=== PATIENT | female | born 1970 | race Caucasian/White ===

== ENCOUNTER 2022-06-09 17:00 | Inpatient (IN) | payer OTHER ==
[~2022-06-09] VITALS: Ht 167.6 cm; Wt 130.2 kg
[2022-06-09] MEDS ORDERED: ALBUTEROL SULFATE/IPRATROPIU 3 ML SOL IH ONE (17:15)
[2022-06-09 17:19] VITALS: BP 127/108
--- NOTE | 2022-06-09 17:49 | NUR ---
52 y/o female biba from home, c/o chills, subjective fever, cough, sob and increased respiratory effort for 4 days. at home health nurse came and found patient was 78% ra at home. amr arrived and placed pt on non rebreather 15L on 100% spo2. a&ox4, korean speaking, does not ambulate at this time due to weakness. pt has bl lower leg cellulitis and currently has home health. lung sounds wheezing bl, heart sounds regular and tachy at 106. ermd made aware. pmh: dm2, thyroid, htn, cellulitis, hld nka med: denies
[2022-06-09 18:26] LABS: BASOPHILS % (AUTO) 0.4 % (0.0-2.0); EOSINOPHILS # (AUTO) 0.2 K/uL (0-0.4); EOSINOPHILS % (AUTO) 1.4 % (0.0-4.0); HEMATOCRIT 29.3 % (36-48); HEMOGLOBIN 9.1 g/dL (12.0-16.0); LYMPHOCYTES # (AUTO) 1.5 K/uL (2.5-16.5); LYMPHOCYTES % (AUTO) 14.4 % (20.5-51.1); MEAN CORPUSCULAR HEMOGLOBIN 24 pg (27-31); MEAN CORPUSCULAR HGB CONC 31 g/dL (33-37); MEAN CORPUSCULAR VOLUME 77.2 fL (80-94); MONOCYTES # (AUTO) 1.4 K/uL (0.8-1.0); MONOCYTES % (AUTO) 13.2 % (1.7-9.3); NEUTROPHILS # (AUTO) 7.4 K/uL (1.8-7.7); NEUTROPHILS % (AUTO) 70.6 % (42.2-75.2); PLATELET COUNT (AUTO) 473 K/uL (140-450); RED CELL DISTRIBUTION WIDTH 21.3 % (11.6-13.7); WHITE BLOOD COUNT (AUTO) 10.6 K/uL (4.8-10.8)
[2022-06-09 18:53] LABS: ALBUMIN 2.3 g/dL (3.4-5.0); ANION GAP 11.4 (8-16); CARBON DIOXIDE 31.7 mmol/L (21-32); CREATININE 1.2 mg/dL (0.6-1.3); POTASSIUM 4.1 mmol/L (3.5-5.1); TOTAL BILIRUBIN 0.8 mg/dL (0.0-1.0)
[2022-06-09] MEDS ORDERED: OSELTAMIVIR PHOSPHATE 75 MG CAP PO ONE (19:40)
[2022-06-09] MEDS ORDERED: AZITHROMYCIN 500 MG in DEXTROSE 5% 250 ML IV ONE (19:45)
--- NOTE | 2022-06-09 20:00 | NUR ---
ASSUMED CARE OF PT AT THIS TIME. UPDATED PT ON POC WITH FULL RETURNED VERBAL UNDERSTANDING. AWAITING ADMISSION. WILL FOLLOW THROUGH WITH ALL ORDERS AT THIS TIME. PT IN POSITION OF COMFORT. VSS. WILL CONTINUE TO MONITOR.
--- NOTE | 2022-06-09 20:09 | NUR ---
PT REMOVED FROM 15LNRB AND PLACED ON 6L OXY PT TOLERATING WELL AT THIS TIME PT TENDS TO DESAT SLIGHTLY WHEN SHE SPEAKS AND UPON EXERTION WILL CONTINUE TO MONITOR
[2022-06-09] MEDS ORDERED: FUROSEMIDE 40 MG/4 ML VIAL IVP SCH (20:15)
[2022-06-09] MEDS ORDERED: METOCLOPRAMIDE 10 MG/2 ML INJ VIAL IVP PRN (20:25)
[2022-06-09] MEDS ORDERED: POTASSIUM CHLORIDE 10 MEQ TABER PO PRN (20:25)
[2022-06-09] MEDS ORDERED: HYDROcodone/APAP 5/325 MG 1 TAB TAB PO PRN (20:25)
[2022-06-09] MEDS ORDERED: KCL 20 MEQ/WATER INJ PREMIX 200 ML IV PRN (20:25)
[2022-06-09] MEDS ORDERED: ONDANSETRON 4 MG/2 ML VIAL IVP PRN (20:25)
[2022-06-09] MEDS ORDERED: ACETAMINOPHEN 325 MG TAB PO PRN (20:25)
[2022-06-09] MEDS ORDERED: OSELTAMIVIR PHOSPHATE 75 MG CAP ONE (20:43)
[2022-06-09] MEDS ORDERED: cefTRIAXone 1,000 MG VIAL ONE (20:43)
[2022-06-09] MEDS ORDERED: methylPREDNISolone SS 40 MG/ML VIAL IVP SCH (21:00)
[2022-06-09] MEDS ORDERED: SYN.075 PO (21:06)
[2022-06-09] MEDS ORDERED: METF-350 PO (21:06)
[2022-06-09] MEDS ORDERED: MEX2.5 PO (21:06)
[2022-06-09] MEDS ORDERED: ATOR10TA PO (21:06)
[2022-06-09] MEDS ORDERED: VITA1TAB44 PO (21:06)
[2022-06-09] MEDS ORDERED: LISI-487 PO (21:06)
[2022-06-09] MEDS ORDERED: AZITHROMYCIN 500 MG INJ VIAL IV ONE (21:13)
--- NOTE | 2022-06-09 21:25 | NUR ---
NAMITA BANEGAS AT BEDSIDE TO TAKE PICTURES OF WOUNDS TO BILATERAL LEGS. PT TOLERATING WELL
[2022-06-09] MEDS ORDERED: ASPIRIN 325 MG TAB PO SCH (21:35)
[2022-06-09] MEDS: ATORVASTATIN 20 MG TAB PO SCH (21:35)
[2022-06-09] MEDS: ZOLPIDEM 5 MG TAB PO PRN (21:46)
--- NOTE | 2022-06-09 22:25 | NUR ---
Patient will be admitted to care of DR. JULIEN. Admited to TELEMETRY. Will go to room 120B. Belongings list completed. Report to BART AGUERO.
[2022-06-10] VITALS: BP 138/76
--- NOTE | 2022-06-10 03:24 | NUR ---
arrived at bedside and found pt w/ retractions along with periods of pause in breaths pt w/ occasional gasps placed pt on niv 22/12 f16 55% retractions appear to be resolved w/ no pauses in breaths post niv initiation pt receiving approx [id number] w/ spo2 97% 15 min post initiation bipap plugged into red outlet w/ alarms on and audible will continue to monitor
[2022-06-10 04:00] VITALS: BP 129/70
--- NOTE | 2022-06-10 07:30 | NUR ---
ENDORSED PT TO AM NURSE.PT IS STABLE
[2022-06-10 07:42] LABS: HEMOGLOBIN 8.9 g/dL (12.0-16.0); MEAN CORPUSCULAR HEMOGLOBIN 24 pg (27-31); MEAN CORPUSCULAR HGB CONC 31 g/dL (33-37); MEAN CORPUSCULAR VOLUME 78.2 fL (80-94); PLATELET COUNT (AUTO) 474 K/uL (140-450); RED BLOOD CELL COUNT(AUTO) 3.71 MIL/uL (4.20-5.40); RED CELL DISTRIBUTION WIDTH 21.5 % (11.6-13.7)
[2022-06-10 08:12] LABS: ANION GAP 13.7 (8-16); CARBON DIOXIDE 29.2 mmol/L (21-32); CREATININE 0.9 mg/dL (0.6-1.3); POTASSIUM 4.9 mmol/L (3.5-5.1)
[2022-06-10 09:02] LABS: BASOPHILS % (MANUAL) 0 % (0-2); BLASTS, MANUAL % 0 % (0-0); EOSINOPHILS % (MANUAL) 0 % (0-4); LYMPHOCYTES % (MANUAL) 5 % (20-46); METAMYELOCYTES % 0 % (0-0); MONOCYTES % (MANUAL) 4 % (5-12); MYELOCYTES % 0 % (0-0); OTHER CELLS,MANUAL % 0 (0-0); PROMYELOCYTES % 0 % (0-0)
[2022-06-10 09:05] LABS: BUFFY COAT SMEAR PREP N
[2022-06-10] MEDS: ASPIRIN 81 MG TAB.CHEW PO SCH (10:21)
[2022-06-10] MEDS: ATORVASTATIN 20 MG TAB PO SCH (10:21)
[2022-06-10] MEDS: OSELTAMIVIR PHOSPHATE 75 MG CAP PO SCH ×2 (10:21→21:31)
[2022-06-10] MEDS: FUROSEMIDE 40 MG/4 ML VIAL IVP SCH ×2 (10:22→16:41)
[2022-06-10] MEDS: ENOXAPARIN 40 MG/0.4 ML SYR SUBQ SCH (10:25)
--- NOTE | 2022-06-10 10:53 | NUR ---
PATIENT HAS BEEN SCREENED AND CATEGORIZED MODERATE NUTRITION RISK. PATIENT WILL BE SEEN WITHIN 3-5 DAYS OF ADMISSION. 06/12/[address]
--- NOTE | 2022-06-10 15:04 | NUR ---
DC PLANNING SW MET WITH PT AT BEDSIDE TO COMPLETE ASSESSMENT. PT REPORTS RESIDING IN A MOBILE HOME WITH HER SON, AT THE ADDRESS LISTED ON FILE. PT IDENTIFIED CASANDRA HUSSEIN, DAUGHTER, AND JAMES HUSSEIN, SON, EMERGENCY CONTACTS. PT DENIED HAVING AD IN PLACE AND ACCEPTED AD OFFERED BY SW. PT REPORTS LAST VISIT WITH PCP, LAST MONTH. SW SPOKE TO PT ABOUT THE IMPORTANCE OF F/UP CARE, PT RECEPTIVE AND PROVIDED SW WITH PERMISSION TO SCHEDULE PCP FOLLOW UP.PT REPORTS MEDICATION COMPLIANCE AND DENIES BARRIERS IN ACCESSING TO NEEDED MEDICATIONS. PT REPORTS RECEIVING MEDICATION FROM [facility] IN [place], WHEN NEEDED. PT REPORTS BEING AMBULATORY WITH DME ASSISTANCE; SEAN, CONSUELO, BC, FWW. PT IS ABLE TO COMPLETE ALL ADL'S INDEPENDENTLY. PT HAS HX OF DIABETES THAT IS REPORTED TO BE WELL MANAGED. PT REPORTS RECEIVING HH WITH [facility] FOR WOUND CARE. PT ALSO REPORTS RECEIVING OUTPT EVERY THREE WEEKS WITH [facility]. PT DENIES HX OF SNF PLACEMENT AND DIALYSIS TX. PT REPORTS DC PLAN IS TO RETURN HOME WITH FAMILY PROVIDING TRANSPORTATION WHEN MEDICALLY STABLE. SW INQUIRED ON ADDITIONAL RESOURCES NEEDED, PT DECLINED. Addendum: 06/10/22 at 1505 by Briana PARADA Amended: Links added. Addendum: 06/12/22 at 1653 by Briana PARADA EDGAR OUTREACHED TO PATIENTS PCP OFFICE AT [phone]. EDGAR SPOKE WITH KENNETH AT DR OFFICE, APPT SCHEDULED FOR 06/22/22 AT 9:00 AM [facility] [address] [facility] [address] . PATIENT WAS PROVIDED WITH APPT DETAILS THAT INCLUDED; DATE, TIME, ADDRESS, PHONE NUMBER AND DR. PT ACCEPTED
--- NOTE | 2022-06-10 19:55 | NUR ---
FOUND PATIENT ON 6L OXYMIZER SATING 99%. NO RESPIRATORY DISTRESS NOTED. WILL CONTINUE TO MONITOR.
[2022-06-10 20:00] VITALS: BP 120/74
--- NOTE | 2022-06-10 20:00 | NUR ---
RECEIVED PT FROM DAY RN FOR CONTINUITY OF CARE. PT ALERT AND ORIENTED X 4, ON 6L OXIMIZER. O2 SAT AT 100%.FAMILY AT BEDSIDE. NO S/SX OF DISTRESS. BREATHING EVEN AND UNLABORED. IV ON R AC, G 20, FLUSHING WELL. WOUNDS ON BILATERAL SHINS. DRESSING DRY AND INTACT. ALL PRECAUTIONS IN PLACE. CALL LIGHT WITHIN REACH. WILL CONTINUE TO MONITOR.
[2022-06-10] MEDS: FAMOTIDINE 20 MG/2 ML VIAL IV SCH (21:30)
[2022-06-10] MEDS: AZITHROMYCIN 500 MG in DEXTROSE 5% 250 ML IV SCH (22:00)
--- NOTE | 2022-06-10 22:00 | NUR ---
SCHEDULED MEDICATIONS GIVEN. PT TOLERATED WELL. WILL CONTINUE TO MONITOR.
[2022-06-11] VITALS: BP 120/72
--- NOTE | 2022-06-11 | NUR ---
VITAL SIGNS STABLE. NO S/SX OF DISTRESS NOTED. BREATHING EVEN AND UNLABORED.ALL PRECAUTIONS IN PLACE. CALL LIGHT WITHIN REACH. WILL CONTINUE TO MONITOR.
--- NOTE | 2022-06-11 03:29 | NUR ---
PT IS ASLEEP.NO S/SX OF DISTRESS NOTED. O2 SAT AT 97%.ALL PRECAUTIONS IN PLACE. WILL CONTINUE TO MONITOR.
[2022-06-11 04:00] VITALS: BP 125/73
--- NOTE | 2022-06-11 06:58 | NUR ---
PT IS STABLE. NO ACUTE EVENTS THROUGHOUT THE NIGHT. NO S/SX OF DISTRESS AT THIS TIME. NO COMPLAINS OF PAIN. ALL PRECAUTIONS IN PLACE. CALL LIGHT WITHIN REACH. WILL ENDORSE TO AM SHIFT NURSE.
[2022-06-11 07:24] LABS: BASOPHILS # (AUTO) 0.1 K/uL (0.00-0.22); BASOPHILS % (AUTO) 0.6 % (0.0-2.0); EOSINOPHILS # (AUTO) 0.2 K/uL (0-0.4); EOSINOPHILS % (AUTO) 2.1 % (0.0-4.0); HEMATOCRIT 28.7 % (36-48); HEMOGLOBIN 8.9 g/dL (12.0-16.0); LYMPHOCYTES # (AUTO) 1.9 K/uL (2.5-16.5); LYMPHOCYTES % (AUTO) 20.3 % (20.5-51.1); MEAN CORPUSCULAR HEMOGLOBIN 24 pg (27-31); MEAN CORPUSCULAR HGB CONC 31 g/dL (33-37); MEAN CORPUSCULAR VOLUME 77.5 fL (80-94); MONOCYTES # (AUTO) 0.4 K/uL (0.8-1.0); MONOCYTES % (AUTO) 4.5 % (1.7-9.3); NEUTROPHILS # (AUTO) 6.6 K/uL (1.8-7.7); NEUTROPHILS % (AUTO) 72.5 % (42.2-75.2); PLATELET COUNT (AUTO) 501 K/uL (140-450); RED BLOOD CELL COUNT(AUTO) 3.71 MIL/uL (4.20-5.40); RED CELL DISTRIBUTION WIDTH 20.9 % (11.6-13.7); WHITE BLOOD COUNT (AUTO) 9.1 K/uL (4.8-10.8)
--- NOTE | 2022-06-11 07:30 | NUR ---
RECEIVED REPORT FROM NIGHTSHIFT NURSE MEGAN FOR CONTINUITY OF CARE. PT IS IN STABLE CONDITION, A/OX4 AND IS CURRENTLY SLEEPING. PT IS BREATHING EVEN, REGULAR AND UNLABORED ON 6L VIA OXYMIZER. PT IS CONTINENT OF THE BOWEL AND BLADDER, AND IS AMBULATORY. PT SKIN IS INTACT. DROPLET PRECAUTION IN EFFECT FOR INFLUENZA B. NO SIGNS OF PAIN OR DISTRESS NOTED AT THIS TIME.
[2022-06-11 08:00] VITALS: BP 134/75
[2022-06-11 08:45] LABS: ANION GAP 12.8 (8-16); CARBON DIOXIDE 33.7 mmol/L (21-32); CREATININE 0.9 mg/dL (0.6-1.3); POTASSIUM 3.5 mmol/L (3.5-5.1)
[2022-06-11] MEDS: ATORVASTATIN 20 MG TAB PO SCH (08:49)
[2022-06-11] MEDS: FUROSEMIDE 40 MG/4 ML VIAL IVP SCH ×2 (08:49→17:09)
[2022-06-11] MEDS: ASPIRIN 81 MG TAB.CHEW PO SCH (08:49)
[2022-06-11] MEDS: FAMOTIDINE 20 MG/2 ML VIAL IV SCH ×2 (08:49→20:55)
[2022-06-11] MEDS: ENOXAPARIN 40 MG/0.4 ML SYR SUBQ SCH (08:50)
[2022-06-11] MEDS: OSELTAMIVIR PHOSPHATE 75 MG CAP PO SCH ×2 (08:50→20:55)
--- NOTE | 2022-06-11 10:20 | NUR ---
PT COMPLAINED OF HEADACHE 6/10 PAIN LEVEL. MEDICATED PRN TYLENOL.
[2022-06-11] MEDS: LEVOTHYROXINE 0.075 MG TAB PO SCH (11:11)
[2022-06-11] MEDS: MAG SULF 2000 MG/WATER PREMIX 50 ML IV PRN (11:28)
--- NOTE | 2022-06-11 11:28 | NUR ---
ADMINISTERED MAG RIDER FOR MAG LEVEL OF 1.5.
--- NOTE | 2022-06-11 11:43 | NUR ---
CHECKED ON PT TO SEE IF SHE CAN BE WEANED DOWN ON O2. PT WAS WITH AUTO BODY SERVICE MECHANIC USING RESTROOM AUTO BODY SERVICE MECHANIC STATED PT VITALS BEFORE GOING TO THE RESTROOM WERE 96% ON 6L OXYMIZER. WILL COME BACK TO CHECK ON PT TO TRY AND TITRATE O2.
[2022-06-11 12:00] VITALS: BP 141/96
[2022-06-11] MEDS ORDERED: DEXTROSE 50% 50 ML SYR IVP PRN (12:50)
--- NOTE | 2022-06-11 13:00 | NUR ---
VISUALLY ASSESSED PT, NO SIGNS OF PAIN OR DISTRESS NOTED AT THIS TIME.
--- NOTE | 2022-06-11 13:20 | NUR ---
TITRATED PT FROM 6L OXY TO 3L OXY PT IS SATING 93% AND IS STABLE WITHOUT RESP DISTRESS. PT IS AWARE IF SOB HAPPENS TO CALL RT.WILL CONTINUE TO MONITOR.
[2022-06-11 16:00] VITALS: BP 131/71
[2022-06-11] MEDS ORDERED: POTASSIUM CHLORIDE 10 MEQ TABER PO SCH (16:00)
[2022-06-11] MEDS ORDERED: MAG SULF 2000 MG/WATER PREMIX 50 ML IV ONE (16:00)
--- NOTE | 2022-06-11 16:00 | NUR ---
VISUALLY ASSESSED PT, NO SIGNS OF PAIN OR DISTRESS NOTED AT THIS TIME.
[2022-06-11] MEDS: BLOOD GLUCOSE MONITORING 1 DEV DEV FS SCH ×2 (17:08→20:55)
[2022-06-11] MEDS: INSULIN LISPRO SLIDING SCALE 100 UNITS/ML VIAL SUBQ PRN ×2 (17:10→21:46)
--- NOTE | 2022-06-11 18:00 | NUR ---
VISUALLY ASSESSED PT, NO SIGNS OF PAIN OR DISTRESS NOTED AT THIS TIME.
--- NOTE | 2022-06-11 19:05 | NUR ---
ENDORSED PT TO NIGHTSPRFT NURSE GUZMAN FOR CONTINUITY OF CARE. PT IS IN STABLE CONDITION.
--- NOTE | 2022-06-11 19:19 | NUR ---
RECEIVED PT FROM DAY RN FOR CONTINUITY OF CARE. PT ALERT AND ORIENTED X 4, ON 6L OXIMIZER. O2 SAT AT 100%.ON DROPLET PRECAUTION FOR INFLUENZA B. NO S/SX OF DISTRESS. BREATHING EVEN AND UNLABORED. IV ON R AC, G 20, FLUSHING WELL. WOUNDS ON BILATERAL SHINS. DRESSING DRY AND INTACT. ALL PRECAUTIONS IN PLACE. CALL LIGHT WITHIN REACH. WILL CONTINUE TO MONITOR.
[2022-06-11 20:00] VITALS: BP 142/91
[2022-06-11] MEDS: AZITHROMYCIN 500 MG in DEXTROSE 5% 250 ML IV SCH (20:55)
--- NOTE | 2022-06-11 21:00 | NUR ---
SCHEDULED MEDICATIONS GIVEN. PT TOLERATED WELL. WILL CONTINUE TO MONITOR.
[2022-06-12] VITALS: BP_SYST 111; BP_SYST 137; BP_DIAS 51; BP_DIAS 81
--- NOTE | 2022-06-12 02:24 | NUR ---
PT IS ASLEEP.NO S/SX OF DISTRESS NOTED. O2 SAT AT 95%.ALL PRECAUTIONS IN PLACE. WILL CONTINUE TO MONITOR.
[2022-06-12 04:00] VITALS: BP 116/69
--- NOTE | 2022-06-12 05:30 | NUR ---
PT O2 SAT AT 88% SLEEPING. INCREASED OXIMIZER FROM 3L TO 6L. O2 SAT BACK TO 94%. INFORMED RT MANDAEISM WITH O2 CHANGE.
--- NOTE | 2022-06-12 06:11 | NUR ---
SCHEDULED MEDICATIONS GIVEN. PT TOLERATED WELL. WILL CONTINUE TO MONITOR.
[2022-06-12] MEDS: LEVOTHYROXINE 0.075 MG TAB PO SCH (06:22)
[2022-06-12] MEDS: BLOOD GLUCOSE MONITORING 1 DEV DEV FS SCH ×4 (06:22→20:57)
[2022-06-12 06:32] LABS: BASOPHILS % (AUTO) 0.5 % (0.0-2.0); EOSINOPHILS # (AUTO) 0.5 K/uL (0-0.4); EOSINOPHILS % (AUTO) 5.7 % (0.0-4.0); HEMATOCRIT 30.3 % (36-48); HEMOGLOBIN 9.6 g/dL (12.0-16.0); LYMPHOCYTES # (AUTO) 1.3 K/uL (2.5-16.5); LYMPHOCYTES % (AUTO) 14.4 % (20.5-51.1); MEAN CORPUSCULAR HEMOGLOBIN 24 pg (27-31); MEAN CORPUSCULAR HGB CONC 32 g/dL (33-37); MONOCYTES # (AUTO) 0.5 K/uL (0.8-1.0); MONOCYTES % (AUTO) 5.3 % (1.7-9.3); NEUTROPHILS # (AUTO) 6.7 K/uL (1.8-7.7); NEUTROPHILS % (AUTO) 74.1 % (42.2-75.2); PLATELET COUNT (AUTO) 497 K/uL (140-450); RED BLOOD CELL COUNT(AUTO) 3.94 MIL/uL (4.20-5.40); RED CELL DISTRIBUTION WIDTH 21.2 % (11.6-13.7); WHITE BLOOD COUNT (AUTO) 9.1 K/uL (4.8-10.8)
[2022-06-12] MEDS: INSULIN LISPRO SLIDING SCALE 100 UNITS/ML VIAL SUBQ PRN ×4 (06:33→21:38)
--- NOTE | 2022-06-12 06:39 | NUR ---
PT IS STABLE. NO ACUTE EVENTS THROUGHOUT THE NIGHT. BREATHING EVEN AND UNLABORED.O2 SAT AT 96%. S/SX OF DISTRESS AT THIS TIME. NO COMPLAINS OF PAIN. ALL PRECAUTIONS IN PLACE. CALL LIGHT WITHIN REACH. WILL ENDORSE TO AM SHIFT NURSE.
[2022-06-12 06:48] LABS: ANION GAP 12.4 (8-16); CARBON DIOXIDE 36.2 mmol/L (21-32); CREATININE 0.9 mg/dL (0.6-1.3); POTASSIUM 3.6 mmol/L (3.5-5.1)
[2022-06-12] MEDS: ALBUTEROL SULFATE/IPRATROPIU 3 ML SOL IH SCH ×3 (07:00→21:38)
--- NOTE | 2022-06-12 07:09 | NUR ---
RECEIVED PT FROM CLOTHING PATTERN PREPARER NURSE MEGAN FOR CONTINUITY OF CARE. PT AWAKE IN BED. NO DISTRESS NOTED. RESPIRATIONS EVEN AND UNLABORED ON 6L OXYMIZER. A&O4 ABLE TO COMMUNICATE NEEDS. NOTED BILATERAL LEGS COVERED WITH BANDAGE. CALL LIGHT WITHIN REACH. SAFETY PRECAUTIONS IN PLACE.
[2022-06-12 08:00] VITALS: BP 137/87
[2022-06-12] MEDS: FUROSEMIDE 40 MG/4 ML VIAL IVP SCH ×2 (09:00→17:00)
[2022-06-12] MEDS: OSELTAMIVIR PHOSPHATE 75 MG CAP PO SCH ×2 (09:03→21:28)
[2022-06-12] MEDS: ASPIRIN 81 MG TAB.CHEW PO SCH (09:04)
[2022-06-12] MEDS: ATORVASTATIN 20 MG TAB PO SCH (09:04)
[2022-06-12] MEDS: ENOXAPARIN 40 MG/0.4 ML SYR SUBQ SCH (09:05)
--- NOTE | 2022-06-12 09:14 | NUR ---
ADMINISTERED SCHEDULED MORNING MEDS. PT TOLERATED WELL. PT COMPLAINING OF LEG AND ARM PAIN 12/19. PT REQUESTING FOR NAPROXEN. PT SAID IT WORKS WELL FOR HER. MADE AWARE. AWAITING FOR RESPONSE.
--- NOTE | 2022-06-12 09:24 | NUR ---
PT WAS ASLEEP AND RESTING COMFORTABLE. DUONEB WAS NOT ADMINISTERED. HR75, RR20, O2 SAT 96. SLIGHT EXPITRATORY WHEEZE PRESENT. PT SHOWED NO SIGN OF DISTRESS
[2022-06-12] MEDS: FAMOTIDINE 20 MG/2 ML VIAL IV SCH ×2 (09:56→21:27)
[2022-06-12] MEDS: MAG SULF 2000 MG/WATER PREMIX 50 ML IV PRN (09:56)
--- NOTE | 2022-06-12 10:12 | NUR ---
IV MEDS ADMINISTERED BY LACI HURST. MG SULF ADMINISTERED BY RN FOR MG 1.7. NO ADVERSE REACTION NOTED.
--- NOTE | 2022-06-12 10:18 | NUR ---
WOUND CARE NOTE: WOUND ASSESSMENT DONE ON THIS 52 Y/0 PT. AAX4 PT. ADMITTED WITH BLE CHRONIC STASIS ULCERS, PER PT. SHE GOES TO [facility] AND HOME HEALTH CARE NURSE FOLLOW UP TWICE A WEEK, DAUGHTER USUALLY DOES WOUND CARE AT HOME DAILY. PER PT. SHE LIKES TO CONTINUE SANTYL OINTMENT AND SHE WILL PROVIDE UN-OPEN NEW TUBE. POC DISCUSSED WITH PRIMARY NURSE ISAURA AND PT. PT. VERBALIZES UNDERSTANDING. -RLE STASIS ULCER 1X1X0.5CM WOUND BED PINK, MOIST, NO ODOR, VI-WOUND SKIN DRY AND INTACT, PAIN 0/10 -LLE STASIS ULCER 92B08H1.8CM CIRCUMFERENCES IRREGULAR WOUND SHAPE ANTERIOR TO MEDIAL AND POSTERIOR, WOUND BED PINK AND MODERATE AMOUNT SEROUS DRAINAGE, NO ODOR, VI-WOUND SKIN DRY INTACT, PAIN 0/10 RECOMMENDATIONS: -CLEANSE BLE WOUNDS WITH WOUND CARE SOLUTION, PAT DRY, APPLY SANTYL OINTMENT WITH ADAPTIC/OIL EMULSION DRESSING, COVER WITH ABD PAD, WRAP WITH KERLIX ROLLS AND SECURED WITH TAPE DAILY AND PRN IF SOILING. FAMILY TO PROVIDE SANTYL OINTMENT. -ELEVATED BLE WITH 2 PILLOWS
[2022-06-12] MEDS ORDERED: POTASSIUM CHLORIDE 10 MEQ TABER PO SCH (10:23)
[2022-06-12] MEDS ORDERED: MAG SULF 2000 MG/WATER PREMIX 50 ML IV SCH (10:23)
[2022-06-12] MEDS: NAPROXEN 500 MG TAB PO SCH ×2 (10:36→21:28)
--- NOTE | 2022-06-12 11:31 | NUR ---
BLOOD SUGAR CHECK DONE. SLIDING SCALE INSULIN ADMINISTERED FOR BS 199. PT NOW ON 3L NC, SATTING AT 94%, ADJUSTED BY RT.
[2022-06-12 12:00] VITALS: BP 116/74
[2022-06-12] MEDS: NON ADHERENT DRESSING TP SCH (13:41)
--- NOTE | 2022-06-12 15:02 | NUR ---
PT SLEEPING. BREATHING EVEN AND UNLABORED. NO DISTRESS NOTED. SON AT BEDSIDE.
[2022-06-12 16:00] VITALS: BP 121/70
--- NOTE | 2022-06-12 17:49 | NUR ---
SLIDING SCALE INSULIN ADMINISTERED FOR BS 155. PT TOLERATED WELL. PT NO COMPLAINT OF SOB OR DIFFICULTY BREATHING. NO C/O OF PAIN. NO DISTRESS NOTED. SAFETY PRECAUTIONS IN PLACE.
--- NOTE | 2022-06-12 18:57 | NUR ---
PT SITTING AT BEDSIDE. ON 5L, NC SATTING AT 95-96%. NO SOB, NO C/O OF PAIN. SAFETY PRECAUTIONS IN PLACE.
--- NOTE | 2022-06-12 19:14 | NUR ---
ENDORSED PT TO SODIUM CHLORITE OPERATOR NURSE KAYDEN FOR CONTINUITY OF CARE. ALL NEEDS MET THROUGHOUT SHIFT. PT IS STABLE.
--- NOTE | 2022-06-12 19:30 | NUR ---
RECEIVED REPORT FROM DAY SHIFT NURSE. NO S/S OF DISTRESS. CALL LIGHT IN REACH . ALL SAFETY MEASURES IN PLACE. IV SL. 5L NC.
[2022-06-12 20:00] VITALS: BP 125/75
[2022-06-12] MEDS: AZITHROMYCIN 500 MG in DEXTROSE 5% 250 ML IV SCH (21:27)
[2022-06-12] MEDS: ZOLPIDEM 5 MG TAB PO PRN (21:28)
--- NOTE | 2022-06-12 22:26 | NUR ---
ASSISTED PT WITH REPOSITIONING AND ADJUSTED PILLOWS FOR COMFORT. NO S/S OF DISTRESS. CALL LIGHT IN REACH. ALL SAFETY MEASURES IN PLACE. IV RUNNING PER MD ORDER
--- NOTE | 2022-06-12 22:32 | NUR ---
RECEIVED REPORT TO CONTINUE CARE TO PATIENT FROM KAYDEN RN, PATIENT WAS STABLE DURING THE TRANSFER OF CARE. PATIENT WAS NOTED SLEEPING AT THIS TIME. NURSING NOTED PATIENT CHEST RISING AND FALLING WITHOUT DISTRESS. NO NOTED S/S OF PAIN/DISCOMFORT AT THIS TIME. SIDE RAILS UP X 3 FOR SAFETY. CALL LIGHT WITHIN REACH. [email or web address]
[2022-06-13] VITALS: BP 104/54
--- NOTE | 2022-06-13 01:30 | NUR ---
PATIENT NOTED IN BED ASLEEP. NO S/S OF PAIN/DISCOMFORT. NO NOTED S/S OR RESPIRATORY DISTRESS. HEAD OF BED ELEVATED TO GIVE PATIENT EFFECTIVE POSITION FOR BREATHING WHILE IN BED. CALL LIGHT WITHIN REACH. SIDE RAILS UP X 2 FOR SAFETY AND SELF REPOSITIONING. [email or web address]
--- NOTE | 2022-06-13 03:09 | NUR ---
PATIENT IS IN THE BED ASLEEP WITHOUT DISTRESS. [email or web address]
[2022-06-13 04:00] VITALS: BP 111/73
[2022-06-13] MEDS: BLOOD GLUCOSE MONITORING 1 DEV DEV FS SCH ×4 (06:56→21:01)
[2022-06-13 06:59] LABS: BASOPHILS # (AUTO) 0.1 K/uL (0.00-0.22); BASOPHILS % (AUTO) 0.7 % (0.0-2.0); EOSINOPHILS # (AUTO) 0.5 K/uL (0-0.4); EOSINOPHILS % (AUTO) 6.3 % (0.0-4.0); HEMOGLOBIN 10.3 g/dL (12.0-16.0); LYMPHOCYTES # (AUTO) 1.2 K/uL (2.5-16.5); LYMPHOCYTES % (AUTO) 13.9 % (20.5-51.1); MEAN CORPUSCULAR HEMOGLOBIN 25 pg (27-31); MEAN CORPUSCULAR HGB CONC 31 g/dL (33-37); MEAN CORPUSCULAR VOLUME 80.5 fL (80-94); MONOCYTES # (AUTO) 0.6 K/uL (0.8-1.0); MONOCYTES % (AUTO) 6.6 % (1.7-9.3); NEUTROPHILS # (AUTO) 6.1 K/uL (1.8-7.7); NEUTROPHILS % (AUTO) 72.5 % (42.2-75.2); PLATELET COUNT (AUTO) 505 K/uL (140-450); RED CELL DISTRIBUTION WIDTH 21.1 % (11.6-13.7); WHITE BLOOD COUNT (AUTO) 8.4 K/uL (4.8-10.8)
[2022-06-13] MEDS: ALBUTEROL SULFATE/IPRATROPIU 3 ML SOL IH SCH ×3 (07:00→19:30)
[2022-06-13] MEDS: INSULIN LISPRO SLIDING SCALE 100 UNITS/ML VIAL SUBQ PRN ×4 (07:01→20:52)
[2022-06-13 07:04] LABS: ANION GAP 10.6 (8-16); CARBON DIOXIDE 37.3 mmol/L (21-32); CREATININE 0.8 mg/dL (0.6-1.3); POTASSIUM 3.9 mmol/L (3.5-5.1)
[2022-06-13] MEDS: LEVOTHYROXINE 0.075 MG TAB PO SCH (07:08)
--- NOTE | 2022-06-13 07:23 | NUR ---
ENDORSED PATIENT TO TELLY RN, PATIENT WAS STABLE AT SHIFT REPORT. [email or web address]
--- NOTE | 2022-06-13 07:24 | NUR ---
RECEIVED PT FROM STONEWORKING BELT SANDER NURSE GOPAL. PT AWAKE, IN BED. RESPIRATIONS EVEN AND UNLABORED ON 3L NC, SATTING AT 95%. NO DISTRESS NOTED. NO COMPLAINTS OF PAIN. ON WASH HOUSE SUPERVISOR. A&O4, ABLE TO MAKE NEEDS KNOWN. BILATERAL LEGS COVERED WITH BANDAGE, DRY AND INTACT. CALL LIGHT WITHIN REACH. SAFETY PRECAUTIONS IN PLACE.
[2022-06-13 08:00] VITALS: BP 125/91
--- NOTE | 2022-06-13 08:00 | NUR ---
Patient's Plan of Care was discussed and reviewed with BASSAM: ANTONETTE
[2022-06-13] MEDS: NAPROXEN 500 MG TAB PO SCH ×2 (08:39→20:26)
[2022-06-13] MEDS: OSELTAMIVIR PHOSPHATE 75 MG CAP PO SCH ×2 (08:39→20:27)
[2022-06-13] MEDS: ASPIRIN 81 MG TAB.CHEW PO SCH (08:39)
[2022-06-13] MEDS: ATORVASTATIN 20 MG TAB PO SCH (08:39)
[2022-06-13] MEDS: ENOXAPARIN 40 MG/0.4 ML SYR SUBQ SCH (08:41)
--- NOTE | 2022-06-13 08:45 | NUR ---
ADMINISTERED SCHEDULED MEDS. PT TEACHING ABOUT MEDS GIVEN. PT VERBALIZED UNDERSTANDING.
--- NOTE | 2022-06-13 09:00 | NUR ---
DR RENEE WITH LACI CRAWFORD AT BEDSIDE EXPLAINING POC.
[2022-06-13] MEDS: FUROSEMIDE 40 MG/4 ML VIAL IVP SCH ×2 (09:16→17:00)
[2022-06-13] MEDS: FAMOTIDINE 20 MG/2 ML VIAL IV SCH ×2 (09:19→20:27)
--- NOTE | 2022-06-13 09:20 | NUR ---
SCHEDULED IV MEDS ADMINISTERED BY LACI PHAN. NO ADVERSE REACTION NOTED. PT TOLERATED WELL.
--- NOTE | 2022-06-13 09:20 | NUR ---
RT AT BEDSIDE, LOWER O2 TO 2L SATTING AT 94%.
--- NOTE | 2022-06-13 09:20 | NUR ---
@0905 PT WAS PLACED ON RA SO ABG CAN BE COLLECTED. DURING THIS PROCESS PT DESATED TO 88% ON RA WITH HR OF 90. NO DISTRESS WANT OBSERVED AT THIS TIME. RT DTAYED AT BEDSIDE MONITORING PT. ONCE ABG WAS COLLECTED PT WAS PLACED BACK ON O2 AND SPO2 INCREASED TO 91%. ONCE RESULTS ARE PRINTED WILL LET NURSE AND DR VAUGHN KNOW.
--- NOTE | 2022-06-13 09:25 | NUR ---
GAVE LACI DELAROSA ABG RESULTS AND TEXTED DR VAUGHN. WAS ALSO MADE AWARE PT WAS PLACED BACK ON 2L. WILL CONTINUE TO MONITOR.
--- NOTE | 2022-06-13 11:59 | NUR ---
SLIDING SCALE INSULIN GIVEN FOR BS 206.
[2022-06-13 12:00] VITALS: BP 128/65
[2022-06-13] MEDS: NON ADHERENT DRESSING TP SCH (13:00)
--- NOTE | 2022-06-13 15:11 | NUR ---
WOUND DRESSING DONE. PT TOLERATED WELL.
[2022-06-13 16:00] VITALS: BP 135/82
--- NOTE | 2022-06-13 16:36 | NUR ---
BLOOD SUGAR CHECK DONE. SLIDING SCALE INSULIN ADMINISTERED.
--- NOTE | 2022-06-13 19:10 | NUR ---
GAVE BEDSIDE REPORT TO RN LOPEZ FOR CONTINUITY OF CARE. ALL NEEDS MET THROUGHOUT SHIFT. PT IS STABLE.
--- NOTE | 2022-06-13 19:30 | NUR ---
PT WAS GIVEN TX AND NC WAS DISCONTINUED. PT SATING 99%, IS AWARE IF FEELING SOB TO CALL RT AND NC IS PLACED NEXT AT BEDSIDE.
[2022-06-13] MEDS: ZOLPIDEM 5 MG TAB PO PRN (21:00)
[2022-06-13] MEDS: AZITHROMYCIN 500 MG in DEXTROSE 5% 250 ML IV SCH (21:11)
[2022-06-13 23:50] VITALS: BP 135/88
[2022-06-14 04:31] VITALS: BP 140/76
[2022-06-14] MEDS: LEVOTHYROXINE 0.075 MG TAB PO SCH (05:46)
--- NOTE | 2022-06-14 05:51 | NUR ---
rn notes patient remains on nasal cannula at this time. Desaturates during sleep, also desaturates on room air when awake. VSS all shift. Remains independent. BS coverage given.
[2022-06-14] MEDS: BLOOD GLUCOSE MONITORING 1 DEV DEV FS SCH ×4 (06:53→22:25)
[2022-06-14] MEDS: ALBUTEROL SULFATE/IPRATROPIU 3 ML SOL IH SCH (07:20)
[2022-06-14 07:24] LABS: BASOPHILS # (AUTO) 0.1 K/uL (0.00-0.22); BASOPHILS % (AUTO) 0.6 % (0.0-2.0); EOSINOPHILS # (AUTO) 0.9 K/uL (0-0.4); HEMATOCRIT 33.5 % (36-48); HEMOGLOBIN 10.5 g/dL (12.0-16.0); LYMPHOCYTES # (AUTO) 1.6 K/uL (2.5-16.5); MEAN CORPUSCULAR HEMOGLOBIN 25 pg (27-31); MEAN CORPUSCULAR HGB CONC 31 g/dL (33-37); MONOCYTES # (AUTO) 0.8 K/uL (0.8-1.0); MONOCYTES % (AUTO) 8.8 % (1.7-9.3); NEUTROPHILS # (AUTO) 6.1 K/uL (1.8-7.7); NEUTROPHILS % (AUTO) 64.5 % (42.2-75.2); PLATELET COUNT (AUTO) 517 K/uL (140-450); RED BLOOD CELL COUNT(AUTO) 4.24 MIL/uL (4.20-5.40); RED CELL DISTRIBUTION WIDTH 20.5 % (11.6-13.7); WHITE BLOOD COUNT (AUTO) 9.5 K/uL (4.8-10.8)
[2022-06-14 07:27] LABS: ANION GAP 9.9 (8-16); CARBON DIOXIDE 36.4 mmol/L (21-32); CREATININE 0.8 mg/dL (0.6-1.3); POTASSIUM 3.3 mmol/L (3.5-5.1)
[2022-06-14 08:00] VITALS: BP 127/73
[2022-06-14 08:12] LABS: EOSINOPHILS % (AUTO) 9.2 % (0.0-4.0); LYMPHOCYTES % (AUTO) 16.9 % (20.5-51.1)
[2022-06-14] MEDS: ENOXAPARIN 40 MG/0.4 ML SYR SUBQ SCH (09:36)
[2022-06-14] MEDS: FAMOTIDINE 20 MG/2 ML VIAL IV SCH ×2 (09:36→21:24)
[2022-06-14] MEDS: OSELTAMIVIR PHOSPHATE 75 MG CAP PO SCH ×2 (09:37→21:32)
[2022-06-14] MEDS: ATORVASTATIN 20 MG TAB PO SCH (09:37)
[2022-06-14] MEDS: FUROSEMIDE 40 MG/4 ML VIAL IVP SCH ×2 (09:37→17:00)
[2022-06-14] MEDS: NAPROXEN 500 MG TAB PO SCH ×2 (09:37→21:23)
[2022-06-14] MEDS: ASPIRIN 81 MG TAB.CHEW PO SCH (09:37)
[2022-06-14 12:00] VITALS: BP 121/69
[2022-06-14] MEDS: INSULIN LISPRO SLIDING SCALE 100 UNITS/ML VIAL SUBQ PRN ×3 (12:18→22:38)
[2022-06-14] MEDS: NON ADHERENT DRESSING TP SCH (13:00)
[2022-06-14] MEDS ORDERED: POTASSIUM CHLORIDE 10 MEQ TABER PO SCH (13:10)
[2022-06-14 16:00] VITALS: BP 100/68
--- NOTE | 2022-06-14 19:30 | NUR ---
RECEIVED REPORT FROM DAY SHIFT NURSE VAN FOR CONTINUITY OF CARE. PATIENT IS A&O X4. PATIENT IS ON NC 6L, BREATHING IS NORMAL WITH SYMMETRICAL RISE AND FALL OF CHEST. PATIENT'S IV IS 20G RFA, NO FLUIDS RUNNING AT THIS TIME (SALINE LOCKED). PATIENT IS AWAKE, SITTING UP IN BED. BED IS IN LOWEST POSITION, WHEELS LOCKED, CALL LIGHT IN PLACE. WILL CONTINUE TO OBSERVE PATIENT.
--- NOTE | 2022-06-14 19:39 | NUR ---
06/14/22 RD INITIAL ASSESSMENT COMPLETED.PLEASE REFER TO NUTRITION ASSESSMENT UNDER CARE ACTIVITY FOR ESTIMATED NUTRITIONAL NEEDS. 1. CONTINUE [facility] DIET TOLERATED 2. MONITOR BLOOD SUGARS. 3. RD TO FOLLOW-UP 5-7 DAYS, LOW RISK BART SOLOMON RD
[2022-06-14 20:00] VITALS: BP 115/69
[2022-06-14] MEDS: AZITHROMYCIN 500 MG in DEXTROSE 5% 250 ML IV SCH (22:24)
--- NOTE | 2022-06-14 22:40 | NUR ---
PATIENT'S 2000 VITALS WERE OBTAINED. VITALS WERE: BP 115/69, HR 85, O2 98%, RR 18, TEMP 95.6. ADMINISTERED 2100 MEDICATIONS TO PATIENT; PATIENT TOLERATED WELL WITH NO ISSUES IN SWALLOWING. IVPB WAS STARTED SUCCESSFULLY WITHOUT ANY ISSUES. PATIENT'S BS WAS 211, 4 UNITS OF HUMALOG WAS GIVEN FOR COVERAGE. PATIENT IS AWAKED, SITTING UP IN BED WATCHING TV. BREATHING IS NORMAL WITH SYMMETRICAL RISE AND FALL OF CHEST. WILL CONTINUE TO OBSERVE PATIENT.
[2022-06-15] VITALS: BP 113/63
--- NOTE | 2022-06-15 00:30 | NUR ---
OBTAINED PATIENT'S 0000 VITALS. VITALS WERE: BP 113/63, HR 81, TEMP 96.0, O2 95%, RR 18. PATIENT WAS SLEEPING WHEN I ENTERED THE ROOM; PATIENT WAS EASILY AWAKENED AND COOPERATIVE FOR VITALS. BREATHING WAS NORMAL WITH SYMMETRICAL RISE AND FALL OF CHEST. WILL CONTINUE TO OBSERVE PATIENT.
--- NOTE | 2022-06-15 01:40 | NUR ---
LOOKED IN ON PATIENT. PATIENT WAS SLEEPING, LYING SUPINE ON HER RIGHT SIDE. BREATHING WAS NORMAL WITH SYMMETRICAL RISE AND FALL OF CHEST. BED WAS IN LOWEST POSITION, WHEELS LOCKED, CALL LIGHT IN PLACE. WILL CONTINUE TO OBSERVE PATIENT.
--- NOTE | 2022-06-15 03:00 | NUR ---
LOOKED IN ON PATIENT. PATIENT WAS SLEEPING, LYING SUPINE ON HER RIGHT SIDE. BREATHING WAS NORMAL WITH SYMMETRICAL RISE AND FALL OF CHEST. WILL CONTINUE TO OBSERVE PATIENT.
[2022-06-15 04:00] VITALS: BP 134/63
[2022-06-15] MEDS: LEVOTHYROXINE 0.075 MG TAB PO SCH (05:37)
[2022-06-15] MEDS: ALBUTEROL SULFATE/IPRATROPIU 3 ML SOL IH SCH ×3 (07:00→18:58)
[2022-06-15] MEDS: BLOOD GLUCOSE MONITORING 1 DEV DEV FS SCH ×4 (07:18→21:00)
[2022-06-15] MEDS: INSULIN LISPRO SLIDING SCALE 100 UNITS/ML VIAL SUBQ PRN ×4 (07:20→21:00)
--- NOTE | 2022-06-15 07:30 | NUR ---
ENDORSED TO DAY SHIFT NURSE VAN FOR CONTINUITY OF CARE. PATIENT IS STABLE.
--- NOTE | 2022-06-15 07:30 | NUR ---
ADMINISTERED PATIENTS THYROID MEDICATION. PATIENT TOLERATED WELL. OBTAINED BS FROM PATIENT. BS WAS 153, GAVE 2 UNITS OF HUMALOG FOR COVERAGE. BREATHING WAS NORMAL WITH SYMMETRICAL RISE AND FALL OF CHEST. WILL CONTINUE TO OBSERVE PATIENT
[2022-06-15 08:00] VITALS: BP 105/73
[2022-06-15] MEDS: FUROSEMIDE 40 MG/4 ML VIAL IVP SCH ×2 (08:39→16:59)
[2022-06-15] MEDS: ASPIRIN 81 MG TAB.CHEW PO SCH (08:42)
[2022-06-15] MEDS: OSELTAMIVIR PHOSPHATE 75 MG CAP PO SCH (08:42)
[2022-06-15] MEDS: ATORVASTATIN 20 MG TAB PO SCH (08:42)
[2022-06-15] MEDS: NAPROXEN 500 MG TAB PO SCH ×2 (08:42→21:36)
[2022-06-15] MEDS: ENOXAPARIN 40 MG/0.4 ML SYR SUBQ SCH (08:43)
[2022-06-15] MEDS: FAMOTIDINE 20 MG/2 ML VIAL IV SCH ×2 (09:00→21:36)
--- NOTE | 2022-06-15 10:35 | NUR ---
RECEIVED ON SUPPLEMENTAL OXYGEN AT 5 LPM VIA NC SATURATION 96% TITRATED FIO2 TO 3 LPM VAN/RN NOTIFIED
[2022-06-15 12:00] VITALS: BP 119/69
[2022-06-15] MEDS: NON ADHERENT DRESSING TP SCH (13:00)
--- NOTE | 2022-06-15 14:23 | NUR ---
SATURATION 97% ON SUPPLEMENTAL OXYGEN AT 3 LPM VIA NC TITRATED FIO2 TO 2 LPM VAN/LACI NOTIFIED
[2022-06-15 16:00] VITALS: BP 112/55
[2022-06-15 20:00] VITALS: BP 125/70
[2022-06-16] VITALS: BP 113/62
[2022-06-16 04:00] VITALS: BP 136/62
[2022-06-16] MEDS: LEVOTHYROXINE 0.075 MG TAB PO SCH (06:49)
--- NOTE | 2022-06-16 07:20 | NUR ---
Received pt awake, alert and oriented x4. On 2L O2 via nasal cannula. On droplet precautions for flu B. Sinus rhythm with inverted T wave on tele monitor. Abd soft with active bowel sounds. Continent bowel and bladder. Peripheral IV 20 gauge on right hand intact and saline locked. Safety precautions in place.
[2022-06-16 08:00] VITALS: BP 120/67
[2022-06-16] MEDS: ATORVASTATIN 20 MG TAB PO SCH (08:29)
[2022-06-16] MEDS: BLOOD GLUCOSE MONITORING 1 DEV DEV FS SCH ×4 (08:29→21:52)
[2022-06-16] MEDS: ASPIRIN 81 MG TAB.CHEW PO SCH (08:30)
[2022-06-16] MEDS: ALBUTEROL SULFATE/IPRATROPIU 3 ML SOL IH SCH ×3 (08:30→21:25)
[2022-06-16] MEDS: FUROSEMIDE 40 MG/4 ML VIAL IVP SCH ×2 (08:31→17:27)
[2022-06-16] MEDS: FAMOTIDINE 20 MG/2 ML VIAL IV SCH ×2 (08:31→21:00)
[2022-06-16] MEDS: NAPROXEN 500 MG TAB PO SCH ×2 (08:31→21:52)
[2022-06-16] MEDS: ENOXAPARIN 40 MG/0.4 ML SYR SUBQ SCH (08:37)
--- NOTE | 2022-06-16 11:35 | NUR ---
SATURATION 95% ON SUPPLEMENTAL OXYGEN AT 2 LPM VIA NC PLACED ON ROOM AIR TRIAL FAMILY DAY CARE PROVIDER TO MONITOR
[2022-06-16 12:00] VITALS: BP 127/73
--- NOTE | 2022-06-16 12:00 | NUR ---
SATURATION 88%-93% ON ROOM AIR PLACED BACK ON SUPPLEMENTAL OXYGEN AT 2 LPM VIA NC
[2022-06-16] MEDS: INSULIN LISPRO SLIDING SCALE 100 UNITS/ML VIAL SUBQ PRN ×3 (12:49→22:16)
[2022-06-16] MEDS: NON ADHERENT DRESSING TP SCH (13:00)
--- NOTE | 2022-06-16 13:00 | NUR ---
WOUND CARE TO BLE. PT TOLERATED WELL.
[2022-06-16 16:00] VITALS: BP 110/68
--- NOTE | 2022-06-16 18:44 | NUR ---
MOVED PT FROM ROOM 116 TO ROOM 1O6. O2 PLUGGED IN AND ON @2L/MIN VIA NASAL CANNULA.
--- NOTE | 2022-06-16 19:15 | NUR ---
ENDORSED TO ELECTRONIC EQUIPMENT TRADES WORKER NURSE GOPAL FOR CONTINUITY OF CARE.
--- NOTE | 2022-06-16 19:16 | NUR ---
RECEIVED ENDORSEMENT FROM GUADALUPE AGUERO, PATIENT WAS STABLE DURING SHIFT REPORT. PATIENT HAD NO COMPLAINTS OF PAIN/DISCOMFORT. PATIENT HAS NO NOTED S/S OF RESPIRATORY DISTRESS. PATIENT AMBULATORY TO AND BACK FORM THE RESTROOM. PATIENT'S WOUND FROM [place] WAS CHANGED BY AM SHIFT NURSE. DIRECTION FOR THE WOUND CHANGE WAS GIVEN TO NURSING FOR CONSTANCY. SIDE RAILS UP X 2 CALL LIGHT WITHIN REACH. [email or web address]
[2022-06-16 20:00] VITALS: BP 133/77
--- NOTE | 2022-06-16 23:30 | NUR ---
PATIENT WAS SLEEPING WITH HOB ELEVATED TO IMPROVE RESPIRATION. NO NOTED S/S OF PAIN/DISCOMFORT. NO NOTED RESPIRATORY DISTRESS. CALL LIGHT WITHIN REACH FOR ANY AND ALL ASSISTANCE. BED NOTED AT THE LOWEST LEVEL FOR SAFETY. [email or web address]
[2022-06-17] VITALS: BP 132/79
--- NOTE | 2022-06-17 00:20 | NUR ---
PATIENT WAS EASY TO AWAKE FOR VITAL SIGNS. PATIENT WAS SLEEPING WITH HOB ELEVATED TO IMPROVE RESPIRATION. NO NOTED S/S OF PAIN/DISCOMFORT. NO NOTED RESPIRATORY DISTRESS. CALL LIGHT WITHIN REACH FOR ANY AND ALL ASSISTANCE. BED NOTED AT THE LOWEST LEVEL FOR SAFETY. NO NOTED S/S OF INCREASE INFECTION. NO NOTED COUGHING OR COMPLAINTS OF FLU LIKE SYMPTOMS. [email or web address]
--- NOTE | 2022-06-17 03:18 | NUR ---
PATIENT IN BED ASLEEP.NO NOTED PAIN/DISCOMFORT. NO NOTED RESPIRATORY DISTRESS. HOB ELEVATED FOR COMFORT AND PROMOTION FOR RESPIRATORY PRODUCTIVITY. SIDE RAILS X 2. CALL LIGHT WITHIN REACH. [email or web address]
[2022-06-17 04:00] VITALS: BP 136/77
[2022-06-17] MEDS ORDERED: ALBUTEROL SULFATE/IPRATROPIU 3 ML SOL IH PRN (06:55)
[2022-06-17] MEDS: LEVOTHYROXINE 0.075 MG TAB PO SCH (07:11)
[2022-06-17 07:19] LABS: BASOPHILS # (AUTO) 0.1 K/uL (0.00-0.22); BASOPHILS % (AUTO) 0.7 % (0.0-2.0); EOSINOPHILS # (AUTO) 0.9 K/uL (0-0.4); EOSINOPHILS % (AUTO) 10.5 % (0.0-4.0); HEMATOCRIT 32.4 % (36-48); HEMOGLOBIN 10.1 g/dL (12.0-16.0); LYMPHOCYTES # (AUTO) 1.3 K/uL (2.5-16.5); LYMPHOCYTES % (AUTO) 14.5 % (20.5-51.1); MEAN CORPUSCULAR HEMOGLOBIN 24 pg (27-31); MEAN CORPUSCULAR HGB CONC 31 g/dL (33-37); MEAN CORPUSCULAR VOLUME 78.1 fL (80-94); MONOCYTES # (AUTO) 0.8 K/uL (0.8-1.0); MONOCYTES % (AUTO) 9.7 % (1.7-9.3); NEUTROPHILS # (AUTO) 5.6 K/uL (1.8-7.7); NEUTROPHILS % (AUTO) 64.6 % (42.2-75.2); PLATELET COUNT (AUTO) 624 K/uL (140-450); RED BLOOD CELL COUNT(AUTO) 4.15 MIL/uL (4.20-5.40); RED CELL DISTRIBUTION WIDTH 21.4 % (11.6-13.7); WHITE BLOOD COUNT (AUTO) 8.7 K/uL (4.8-10.8)
[2022-06-17 07:22] LABS: ANION GAP 9.7 (8-16); CARBON DIOXIDE 38.6 mmol/L (21-32); CREATININE 0.9 mg/dL (0.6-1.3); POTASSIUM 3.3 mmol/L (3.5-5.1)
--- NOTE | 2022-06-17 07:28 | NUR ---
ENDORSED PATIENT TO JACINTO AGUERO, PATIENT WAS STABLE DURING SHIFT REPORT. [email or web address]
--- NOTE | 2022-06-17 07:43 | NUR ---
POST HHN THERAPY TOLERATED INCENTIVE SPIROMETRY THERAPY WELL WITHOUT INCIDENT NOTED ENCOURAGED PATIENT TO PERFORM INCENTIVE SPIROMETRY EVERY 2 HOURS WHILE AWAKE
[2022-06-17 08:00] VITALS: BP 128/74
[2022-06-17] MEDS: BLOOD GLUCOSE MONITORING 1 DEV DEV FS SCH ×2 (09:27→12:47)
[2022-06-17] MEDS: INSULIN LISPRO SLIDING SCALE 100 UNITS/ML VIAL SUBQ PRN ×2 (09:31→13:18)
[2022-06-17] MEDS: FAMOTIDINE 20 MG/2 ML VIAL IV SCH (09:38)
[2022-06-17] MEDS: FUROSEMIDE 40 MG/4 ML VIAL IVP SCH (09:38)
[2022-06-17] MEDS: ENOXAPARIN 40 MG/0.4 ML SYR SUBQ SCH (09:40)
[2022-06-17] MEDS: NAPROXEN 500 MG TAB PO SCH (09:43)
[2022-06-17] MEDS: ATORVASTATIN 20 MG TAB PO SCH (09:43)
[2022-06-17] MEDS: ASPIRIN 81 MG TAB.CHEW PO SCH (09:43)
[2022-06-17 12:00] VITALS: BP 131/74
[2022-06-17] MEDS: ALBUTEROL SULFATE/IPRATROPIU 3 ML SOL IH SCH ×2 (13:12→15:50)
[2022-06-17] MEDS: NON ADHERENT DRESSING TP SCH (13:18)
[2022-06-17] MEDS ORDERED: ASPI81CT95 PO (13:22)
[2022-06-17] MEDS ORDERED: ATOR20TA40 PO (13:22)
--- NOTE | 2022-06-17 13:38 | NUR ---
SATURATION 95%-96% ON SUPPLEMENTAL OXYGEN AT 2 LPM VIA NC POST HHN THERAPY TITRATED FIO2 TO 1 LPM JACINTO/RN NOTIFIED
--- NOTE | 2022-06-17 13:49 | NUR ---
DC PLANNING: PATIENT HAS AN ORDER FOR HOME O2 FAXED TO [facility]. RECEIVED A CALL FROM VENICE STATED WILL DELIVER THE HOME O2 AT THE HOSPITAL BETWEEN 2-3 HRS. NOTIFIED JACINTO LOPEZ CM TO FOLLOW
--- NOTE | 2022-06-17 16:00 | NUR ---
ID AND INTACT 22 GAUGE IV CATHETER FROM [employer]OV[employer]. PATIENT NEEDS MET AND SENT WITH OXYGEN AND SUPPLIES FOR HOME. A COPY OF DISCHARGE INSTRUCTION AND OXYGEN TEACHING TO PATIENT'S SON WHO IS LIVING IN THE HOME WITH PATIENT. PATIENT AND FAMILY DEPARTURE IN PRIVATE AUTO.
== END 2022-06-17 15:50 | disposition home or self-care (01) | DRG 720 ==
LOC: MED 17:00 → MTU 20:28
PROVIDERS: ADMIT Hospitalist; ATTEND Hospitalist
DX: A41.9 Sepsis, unspecified organism (principal); J96.01 Acute respiratory failure with hypoxia; I21.A1 Myocardial infarction type 2; I50.43 Acute on chronic combined systolic (congestive) and diastolic (congestive) heart failure; J18.9 Pneumonia, unspecified organism; I11.0 Hypertensive heart disease with heart failure; D63.8 Anemia in other chronic diseases classified elsewhere; Z68.42 Body mass index [BMI] 45.0-49.9, adult; M06.9 Rheumatoid arthritis, unspecified; E03.9 Hypothyroidism, unspecified; E66.01 Morbid (severe) obesity due to excess calories; Z20.822 Contact with and (suspected) exposure to COVID-19; Z79.899 Other long term (current) drug therapy; J10.1 Influenza due to other identified influenza virus with other respiratory manifestations
CPT/HCPCS: 36415; 36600; 71045; 71275; 80048; 80053; 82803; 82948; 83735; 83880; 84484; 85025; 87081; 93005; 93970; 94010; 94640; 96365; 96367; 96375; 99285; J0456; J0696; J1650; J1815; J1940; J2920; J3475; J3490; J7060; Q0092; Q9967